=== PATIENT | female | born 1990 | race African-American/Black ===

== ENCOUNTER 2025-05-01 12:28 | Emergency (ER) | payer MEDICAID ==
[~2025-05-01] VITALS: Ht 188 cm; Wt 100.0 kg
[~2025-05-01 12:28] MED LIST: HYDR25TA PO
[2025-05-01 13:19] LABS: BASOPHILS % 0.7 % (0.0-2.0); EOSINOPHILS % 6.9 % (0.0-5.0); HEMATOCRIT. 36.9 % (36.0-48.0); HEMOGLOBIN. 11.5 g/dL (12.0-16.0); LYMPHOCYTES % 29.2 % (20.0-50.0); MEAN PLATELET VOLUME 7.9 fl (7.4-10.4); MONOCYTES % 10.3 % (2.0-8.0); NEUTROPHILS % 52.9 % (40.0-76.0); PLATELET 183 x1000/uL (130-400); RED BLOOD CELL COUNT 4.97 mill/uL (4.2-5.4); RED CELL DISTRIBUTION WIDTH 14.1 % (11.6-14.6)
[2025-05-01] MEDS: SODIUM CHLORIDE 0.9% 1,000 ML IV ONE (13:41)
[2025-05-01] MEDS: ACETAMINOPHEN 325MG TABLET PO ONE (13:41)
[2025-05-01] MEDS: ASPIRIN 81MG TABLET PO ONE (13:41)
[2025-05-01 13:47] LABS: INR 1.0
[2025-05-01 14:17] LABS: HCG SCREEN NEGATIVE
[2025-05-01 14:19] LABS: CREATININE 0.9 mg/dL (0.6-1.0); UREA NITROGEN BLOOD 7 mg/dL (9-23)
[2025-05-01 14:21] LABS: ASPARTATE AMINOTRANSFERASE 18 IU/L (<34); BILIRUBIN DIRECT 0.3 mg/dL (<=3.0); TROPONIN I HIGH SENSITIVITY < 4 ng/L (3.0-34)
[2025-05-01 14:22] LABS: BILIRUBIN TOTAL 0.9 mg/dL (0.1-1.0); PROTEIN TOTAL 6.7 g/dL (6.0-8.3)
[2025-05-01 15:24] LABS: TROPONIN I HIGH SENSITIVITY 5 ng/L (3.0-34)
[2025-05-01] MEDS: METHYLPREDNISOLONE SOD SUCC 125MG/2ML (ACT-O-VIAL) IV ONE (15:38)
[2025-05-01] MEDS: ALBUTEROL (0.083%) 2.5MG/3ML NEB HHN SCH (15:40)
[2025-05-01 15:41] VITALS: PULSE 107; RESP 16; O2SAT 100
[2025-05-01] MEDS: IPRATROPIUM BROMIDE (0.02%) 0.5MG/2.5ML NEB HHN SCH (15:41)
[2025-05-01 16:45] VITALS: PULSE 73; RESP 14; O2SAT 100
[2025-05-01 18:31] VITALS: BP 158/99; PULSE 85; RESP 15; TEMP 37.3; O2SAT 100
[2025-05-01] MEDS ORDERED: ALBU90AE INH (18:42)
[2025-05-01] MEDS ORDERED: P20 MT (18:42)
== END 2025-05-01 19:10 | disposition home or self-care (01) ==
LOC: ER 12:28 → CMPBEDREQ 05-02 07:23
DX: R07.89 Other chest pain (principal); J45.901 Unspecified asthma with (acute) exacerbation; I10 Essential (primary) hypertension; Z79.899 Other long term (current) drug therapy
CPT/HCPCS: 80076; 80048; 84703; 83880; 85025; 85379; 85610; 85730; 84484; 36415; 71045; 94640; 93005; 96361; 96374; 99285; Z7610 ×4; J2919; J7030; 94070; 94664; 98960